=== PATIENT | female | born 1965 | race Caucasian/White ===

== ENCOUNTER 2019-11-19 13:29 | Emergency (ER) | payer MEDICAID, OTHER ==
[~2019-11-19] VITALS: Ht 172.7 cm; Wt 106.6 kg
[2019-11-19 16:05] VITALS: BP 150/70
== END 2019-11-19 15:44 | disposition home or self-care (01) ==
LOC: ER 13:29
DX: S86.912A Strain of unspecified muscle(s) and tendon(s) at lower leg level, left leg, initial encounter (principal); J45.909 Unspecified asthma, uncomplicated; Z90.710 Acquired absence of both cervix and uterus; W10.8XXA Fall (on) (from) other stairs and steps, initial encounter; Y93.89 Activity, other specified; Y99.8 Other external cause status; Y92.89 Other specified places as the place of occurrence of the external cause
CPT/HCPCS: 71045; 73562; 73590; 73630